=== PATIENT | female | born 1960 | race Caucasian/White ===

== ENCOUNTER 2024-09-06 20:26 | Emergency (ER) | payer OTHER, SELFPAY ==
[2024-09-06 20:32] VITALS: BP 158/75
[2024-09-07] MEDS: TORADOL 15 MG IM (00:54)
[2024-09-07] MEDS: PERCOCET 5/325 1 TABLET PO ×2 (00:55→06:15)
[2024-09-07 00:58] VITALS: BP 148/86
--- NOTE | 2024-09-07 01:19 | ED.GENMED ---
History of Present Illness
<DO Jazmin Dockery Filed: 09/07/24 03:04>
General
Chief Complaint: Musculo-Skeletal Complaint
Time Seen by Provider: 09/07/24 00:10
History of Present Illness
History of Present Illness:
64-year-old female with chronic right knee pain presenting for acute on chronic pain. Patient is from running, has been following with pain management where she lives. She is currently visiting her daughter, notes increased pain to her popliteal
region. She was told that she has no more cartilage in her knee, and also a cyst behind her knee. She has been on prednisone and another medication that she cannot remember, per pain management. She has tried other modalities such as gabapentin,
ibuprofen, no relief. Denies any new injury. She has difficulty bearing weight. Denies numbness. Denies fever. Denies any swelling. Denies additional acute medical complaint
Phy Exam
<DO Jazmin Dockery Last Filed: 09/07/24 03:04>
Physical Exam
Physical Exam:
General: Well-appearing, no clinical signs of dehydration, nontoxic and in no acute distress
HEENT: protecting airway
Neck: appears supple
CV: Normal heart rate
Resp: No accessory muscle use, no increased work of breathing
Abd: no distension
Extremities: No deformities, no swelling, no erythema, pulses and sensation intact. Range of motion limited secondary to pain. Reproducible tenderness to the popliteal region
Neuro: alert, no focal neurologic deficit
: deferred
Rectal: deferred
Psych: Normal affect
Skin: Intact
Course
<DO Jazmin Dockery Filed: 09/07/24 03:04>
Orders/Labs/Results
Orders:
Orders
09/07/24 00:45
Ketorolac [Toradol] 15 mg IM NOW STA
Oxycodone/Acetaminophen [Percocet 5/325] 1 tablet PO NOW STA
09/07/24 03:01
Case Management Consult ONCE
Case Management Consult: Discharge Planning
Physical Therapy Consult [Pt Eval And Treat] Urgent
Activity Level: Out of Bed-Early Mobility
09/07/24 03:04
Knee, Right 4 or More Views [CR Knee- Right 4 Or More View*] Urgent
Comment:
Reason For Exam: acute on chronic pain
09/07/24 06:09
Oxycodone/Acetaminophen [Percocet 5/325] 1 tablet PO NOW STA
Vital Signs
Initial and Last Documented VS:
Initial Vital Signs
Temp Pulse Resp BP Pulse Ox
98.5 F 96 19 158/75 99
09/06/24 20:32 09/06/24 20:32 09/06/24 20:32 09/06/24 20:32 09/06/24 20:32
Last Documented Vital Signs
Temp Pulse Resp BP Pulse Ox
98 F 61 16 114/72 97
09/07/24 06:14 09/07/24 09:10 09/07/24 09:10 09/07/24 09:10 09/07/24 09:10
<Gabriel Fraire, DO - Last Filed: 09/07/24 13:45>
Orders/Labs/Results
Orders:
Orders
09/07/24 00:45
Ketorolac [Toradol] 15 mg IM NOW STA
Oxycodone/Acetaminophen [Percocet 5/325] 1 tablet PO NOW STA
09/07/24 03:01
Case Management Consult ONCE
Case Management Consult: Discharge Planning
Physical Therapy Consult [Pt Eval And Treat] Urgent
Activity Level: Out of Bed-Early Mobility
09/07/24 03:04
Knee, Right 4 or More Views [CR Knee- Right 4 Or More View*] Urgent
Comment:
Reason For Exam: acute on chronic pain
09/07/24 06:09
Oxycodone/Acetaminophen [Percocet 5/325] 1 tablet PO NOW STA
Vital Signs
Initial and Last Documented VS:
Initial Vital Signs
Temp Pulse Resp BP Pulse Ox
98.5 F 96 19 158/75 99
09/06/24 20:32 09/06/24 20:32 09/06/24 20:32 09/06/24 20:32 09/06/24 20:32
Last Documented Vital Signs
Temp Pulse Resp BP Pulse Ox
98 F 61 16 114/72 97
09/07/24 06:14 09/07/24 09:10 09/07/24 09:10 09/07/24 09:10 09/07/24 09:10
<Margi Thornton DO - Last Filed: 09/07/24 03:04>
MDM/Problems Addressed
MDM/Problems Addressed:
64-year-old female with chronic right knee pain presenting for acute on chronic pain. Vital signs are normal.
On exam patient is resting comfortably, no acute distress, tearful from pain. Benign examination of the right lower extremity. No erythema, no warmth. No swelling. Intact sensation and pulses without concern for neurovascular compromise.
Continue to suspect arthritic pain. Without present concern for fracture or malalignment, no trauma. Without any concern for infection. Without any concern for DVT. Patient is that she has had Percocet in the past with relief. PDMP checked,
last dose of Percocet was in 2023. Will administer a dose in the emergency department as well as Toradol
03:00 -patient notes that she still having significant pain, does not feel safe to go home because she is scared that she may fall. She is interested in rehabilitation services. Discussed options of discharge home with pain control versus physical
therapy and case management consultation. Patient would like to proceed with case management and physical therapy, who will be in the hospital in the later morning. Patient is okay to wait till then
<Margi Thornton DO - Last Filed: 09/07/24 03:04>
*Pulse Oximetry
SaO2: 99
Nasal Cannula flow liters per minute: 98
Oxygen Mode of Delivery: Room air
*Critical Care Note
Total Time (30-74mins, 75-104mins- exclusive of procedures): Not Applicable
<Gabriel Fraire, DO - Last Filed: 09/07/24 13:45>
Update Note
Update Note:
Care of patient was transitioned earlier pending PT and case management. Patient having trouble ambulating. X-ray negative for acute pathology. PT did suggest rehab and case management was able to facilitate transfer to rehab from the emergency
department
ED Attending Note
<Margi Thornton, DO - Last Filed: 09/07/24 03:04>
-
Portions of this chart may have been created with voice recognition software.� Occasional wrong word or��sound alike� substitutions may have occurred due to the inherent limitations of voice recognition software.
Discharge Plan
Departure
Patient Disposition: Acute Rehab Facility
Date of Disposition: 09/07/24
Time of Disposition: 13:37
Patient with high blood pressure during this ER visit?: No
Condition: Good
Discharge Problem:
Chronic pain of right knee
Instructions: Knee Pain (DC)
Prescriptions:
New
oxycodone 5 mg tablet
5 mg PO Q8H PRN (Reason: Pain) Qty: 14 0RF
Referrals:
UNKNOWN - PT DOES,NOT KNOW [Family Provider]
Activity Restrictions/Additional Instructions:
You were seen in the emergency department for knee pain
You were found to have osteoarthritis your knee.
Please follow-up closely with your primary care physician.
Return to the emergency department for any worsening of your symptoms, or any development of chest pain, difficulty breathing, abdominal pain with persistent vomiting and inability to tolerate food or liquid by mouth (concern for dehydration),
weakness, headache or confusion, fever greater than 100.4, or any additional symptoms that are concerning to you.
Thank you for choosing [facility].
Interventions
Interventions:
*Risk Screen - Suicide Last Done: 09/06/24 20:41
*General Assessment Last Done: 09/06/24 20:41
*Neglect/Abuse Screening Last Done: 09/06/24 20:41
*ED COVID-19 Vaccine History Last Done: 09/06/24 20:42
ED-Musculoskeletal Assessment Last Done: 09/06/24 22:57
Discharge Date and Time
Print Language: UPPER SORBIAN
[2024-09-07 06:14] VITALS: BP 138/47
[2024-09-07 09:10] VITALS: BP 114/72
--- NOTE | 2024-09-07 09:18 | CM ---
Addendum entered by Lucy Lobo 09/07/24 15:05:
Discharge instructions faxed to [facility].
Addendum entered by Lucy Lobo 09/07/24 12:51:
Pt accepted to [facility], received Auth from [employer] , Auth no. [id number], received from Abigail, Nurse Reviewer. Auth for 09/07 to 09/11, expires 09/13.
Auth information given to Patricia.
Report number [id number]

Original Note:
CM received consult, reviewed chart and met with pt bedside in ED.
Pt lives alone, one story home with [address] MEIR, lives in [facility], currently staying with her daughter in [place]. Has first floor BR/BA at daughter's home.
Pt independent in ADLs, personal care and ambulation at baseline, using single point cane for ambulation and also has rollator
Still driving
Discussed PT recommended SNF rehab, [facility] recommended by a friend.
Called [facility], they do not participate in [employer] insurance
Referrals sent to [facility], [facility] and [facility].
PCP: ESTRELLITA Stanley
Pharmacy: [facility]
[2024-09-07 10:00] VITALS: BP 122/49
[2024-09-07 12:00] VITALS: BP 130/49
[2024-09-07 13:00] VITALS: BP 142/68
[2024-09-07 13:03] VITALS: BMI 39.1
== END 2024-09-07 14:10 ==
LOC: EMR 20:26
PROVIDERS: EMERGENCY PHYSICIAN Student in an Organized Health Care Education/Training Program
DX: G89.29 Other chronic pain (principal); M25.561 Pain in right knee
CPT/HCPCS: 96372; 99284; 73564